=== PATIENT | female | born 2000 | race Two or more races ===

== ENCOUNTER 2023-05-30 15:21 | Emergency (ER) | payer MEDICAID ==
[~2023-05-30] VITALS: Ht 167.6 cm; Wt 90.7 kg
[2023-05-30 15:41] VITALS: BP 128/73; PULSE 84; RESP 18; TEMP 98.8
[2023-05-30] MEDS ORDERED: PENI500T2 PO (17:31)
[2023-05-30] MEDS ORDERED: TRAM-559 PO (17:34)
== END 2023-05-30 18:00 | disposition home or self-care (01) ==
LOC: EMS 15:23
DX: K08.89 Other specified disorders of teeth and supporting structures (principal)
CPT/HCPCS: 99283; Z7502